=== PATIENT | male | born 2005 | race Caucasian/White ===

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

== ENCOUNTER 2025-02-18 22:21 | Emergency (ER) | payer MEDICAID, SELFPAY ==
--- NOTE | ~2025-02-18 | XR_ITS ---
CLINICAL HISTORY: pain cough wheeze 1 view chest x-ray Comparison: None provided Findings: No consolidation or effusion. Normal size heart. No acute fracture. IMPRESSION: 1. No acute findings. This document has been electronically signed by: Roger Montenegro MD on 02/18/2025 23:54:02
--- NOTE | ~2025-02-18 | XR_ITS ---
CLINICAL HISTORY: pain 3 views lumbar spine Comparison: None provided Findings: Normal vertebral body alignment. No acute fractures or dislocation. No significant degenerative change. IMPRESSION: No acute findings. This document has been electronically signed by: Roger Montenegro MD on 02/18/2025 23:53:39
[2025-02-18 22:34] VITALS: BP 113/61; PULSE 90; RESP 22; TEMP 36.8; O2SAT 98; BMI 22.5
[2025-02-18 22:56] LABS: Hematocrit 43.3 % (42.0-52.0); Hemoglobin 14.2 g/dl (14.0-18.0); Imm Gran Abs Auto 0.23 X10*3/uL (0.00-0.03); Imm Gran Pct Auto 1.5 % (0.0-0.4); Lymphocytes Absolute Auto 3.3 X10*3/uL (1.2-4.9); Mean Corpuscular HGB Conc 32.8 g/dl (31.0-36.0); Mean Corpuscular Hemoglobin 29.6 pg (27.0-33.0); Mean Corpuscular Volume 90.2 fL (80.0-98.0); NRBC Abs Auto 0.000 X10*3/uL (0.0-0.012); NRBC Pct Auto 0.0 /100WBC (0.0-0.2); Platelet Count 390 X10*3/uL (160-400); Red Blood Count 4.80 X10*6/uL (4.60-5.80); SCAN SMEAR FLAG 1; White Blood Count 15.4 X10*3/uL (4.8-10.8)
[2025-02-18 23:09] LABS: Alanine Aminotransferase 17 U/L (0-40); Albumin Level 4.5 g/dL (3.5-5.0); Alkaline Phosphatase 67 U/L (39-117); Anion Gap 16 (12-20); Aspartate Amino Transferase 22 U/L (5-37); Blood Urea Nitrogen 18 mg/dL (9-16); Calcium 9.0 mg/dL (8.4-10.2); Carbon Dioxide 25 mmol/L (22-29); Chloride 105 mmol/L (96-108); Creatinine Clr Calc Pharmacy 161.1; Estimated Glomerular Filt Rate > 60; Magnesium 2.3 mg/dL (1.6-2.6); Potassium 4.5 mmol/L (3.3-5.1); Sodium 141 mmol/L (135-145); Total Protein 7.5 g/dL (6.5-8.0)
[2025-02-18 23:13] LABS: COVID-19 Test Negative (Negative); IDNOW Serial# 55D5AD1C; IDNOW Serial# 58CA691E; Influenza B2 Negative (Negative)
--- OUTSIDE RECORDS SUMMARY | 2025-02-18 23:34 | XMS_ITS | Clinical Summary ---
Author Organization [facility] Address [address] [address] Phone Care Team Providers Care Coppersmith Apprentice Name Role Phone Margie Painting MD Primary Care Provider [phone] Allergies Active Allergy Reactions Criticality Noted Date Comments Penicillins Rash Low 08/12/2020 Social History Tobacco Use Types Packs/Day Years Used Date Smoking Tobacco: Never Assessed Education Answer Date Recorded Are you interested in more education? Not on demi e 08/08/2022 Are you concerned about learning? Not on file 08/08/2022 No 08/08/2022 No 08/08/2022 Digital Access Answer Date Recorded No 09/05/2022 No 09/05/2022 No 09/05/2022 Reliable internet access at home? Not on file 09/05/2022 Device with a working camera? Not on file Sex and Gender Information Value Date Recorded Sex Assigned at Not on file Legal Sex Male 8:48 AM EDT Gender Identity Not on file Sexual Orientation Not on file Plan of Treatment Health Maintenance Due Date Last Done Comments BMI ASSESSMENT 2008 DEVELOPMENTAL/BEHAVIORAL SCREENING (PHQ, PSC, or SWYC) 2008 COMBINED DTaP,Tdap,Td (2 - T d or Tdap) 10/22/2017 09/24/2017 DEPRESSION SCREENING 2017 SMOKING Hx and SMOKELESS TOBACCO SCREENING 2018 VARICELLA VACCINES (1 of 2 - 13+ 2-dose series) 2018 MENINGOCOCCAL VACCINES (B) ( 1 of 2 - Standard) 2021 ADOLESCENT UNIVERSAL LIPID SCREENING 2022 HEPATITIS C SCREENING 11/20/2023 HIV ONE-TIME SCREENING (18-6 5 YEARS) 11/20/2023 INFLUENZA VACCINE (#1) 2024 HEPATITIS B VACCINES (1 of 3 - 19+ 3-dose series) 2024 COVID-19 VACCINE (1 - 2024-2 6 season) 2024 MMR VACCINES Completed 05/16/2015, 09/19/2010 MENINGOCOCCAL VACCINES (ACWY) Aged Out 09/24/2017 No longer eligible based on patient's age to complete this topic HPV VACCINES Completed 03/28/2018, 09/24/2017 HEPATITIS A VACCINES Aged Out No long er eligible based on patient's age to complete this topic HIB VACCINES Aged Out No longer eligi ble based on patient's age to complete this topic PNEUMOCOCCAL VACCINES (0-49 years) Aged Out No longer eligible b ased on patient's age to complete this topic Medical Devices Not on file Insurance [facility] [place] [address] [place] [address] [place] [address] [facility] Care Teams Coppersmith Apprentice Relationship Specialty Start Date End Date Margie Painting MD [address] [place] [id number] PCP - General Adolescent Medicine 08/05/20 Additional Source Comments The information contained in this document represents components of the legal health record. It is not the complete legal health record.[facility]
[2025-02-19 01:48] VITALS: BP 127/67; PULSE 79; RESP 16; TEMP 36.9; O2SAT 98
--- NOTE | 2025-02-19 03:39 | ED_ITS ---
HPI - General Adult General Chief complaint: General Medical Stated complaint: back pain, headache, coughing Time Seen by Provider: 02/19/25 03:31 Source: patient Mode of arrival: ambulatory Limitations: no limitations History of Present Illness ED Provider: Devan VEGA HPI narrative: The patient is a 19 year old male presenting to the emergency department for evaluation of multiple complaints. The patient reports for the past week he has been experiencing headaches with sinus congestion/pressure, as well as wheezing, and a cough which sounds congested but does not produce any phlegm, as well as atraumatic intermittent low back pain. The patient denies any associated fever/chills, nausea, vomiting, diarrhea, chest pain, shortness of breath, pleurisy, hemoptysis, recent change in activity, recent heavy lifting, recent falls, or other trauma. The patient reports he has recently been around his sisters who have both been feeling ill, denies other sick contacts. Related Data Previous Rx's ?Medication ?Instructions ?Recorded acetaminophen 500 mg capsule 1,000 mg (2 x 500 mg) PO .q8 PRN 02/19/25 fever or pain #30 caps ibuprofen 600 mg tablet 600 mg PO Q8H PRN fever or p ain 02/19/25 #30 tabs Allergies Allergy/AdvReac Type Severity Reaction Status Date / Time amoxicillin Allergy Hives Verified 02/18/25 22:39 Penicillins Allergy Hives Verified 02/18/25 22:39 Review of Systems 2 Review of Systems: Yes all other systems are reviewed and are negative PMFSH Social History Social History Smoked in Last 30 Days: No Use of substances other than those prescribed or required for medical reasons: No Advance Directives: No Advance Directives Information Provided: No Physical Exam ED Vital Signs: Vital Signs - 24 hr 02/18/25 22:34 02/19/25 01:48 Temperature 98.2 F 98.5 F Pulse Rate 90 79 Respiratory Rate 22 H 16 Blood Pressure 113/61 127/67 Pulse Oximetry 98 98 Oxygen Delivery Method Room Air Room Air BMI result Body Mass Index 22.5 CONSTITUTIONAL: The patient appears non-toxic, well nourished and in no acute distress. Vital signs as documented. HEAD: Atraumatic, normocephalic. EYES: EOMs grossly intact, pupils equal, conjunctiva clear, no exudate. ENT: Nares patent, no discharge. Airway patent, no audible stridor, visible mucosa is pink and moist without noted lesions. NECK: Trachea is midline, no obvious masses or gross abnormalities. CHEST: Symmetric movement, normal appearance. LUNGS: LS present and CTAB, no w/r/r. Non-labored work of breathing. CARDIAC: Regular Rhythm, S1/S2 appreciated, no murmurs, rubs or gallops. ABDOMEN: Abdomen soft and non-tender x4 quadrants, no palpable masses or organomegaly. : Deferred. EXTREMITIES: Normal tone, moves all extremities spontaneously without reported pain. No obvious acute injury or deformity noted. NEURO: Alert and oriented x3, CN II-XII appear grossly intact. Cerebellar Functioning grossly intact. No obvious sensory or motor deficits. Speech clear and appropriate. PSYCH: normal affect, appropriate eye contact, fluid speech, with appropriate response to questioning. No reported suicidality or homicidality. SKIN: Warm, dry, color appropriate, normal turgor. No rashes noted. Medical Decision Making Medical Decision Making MDM Narrative: 4:25 AM 02/19/2025 (Clyde VEGA): The patient is a 19 year old male presenting to the emergency department for evaluation of multiple complaints. The patient reports for the past week he has been experiencing headaches with sinus congestion/pressure, as well as wheezing, and a cough which sounds congested but does not produce any phlegm, as well as atraumatic intermittent low back pain. The patient denies any associated fever/chills, nausea, vomiting, diarrhea, chest pain, shortness of breath, pleurisy, hemoptysis, recent change in activity, recent heavy lifting, recent falls, or other trauma. The patient reports he has recently been around his sisters who have both been feeling ill, denies other sick contacts. On exam the patient was woken from sleep, appeared to be very comfortable, in no acute distress, woke readily. The patient's exam is benign, lung sounds clear, abdomen nontender, low back demonstrates no erythema, crepitus, or bony tenderness, full nonpainful range of motion of the neck, no meningismus. Patient's laboratory moderate leukocytosis evaluation does show moderate leukocytosis of 15.4, however patient is afebrile, non tachycardic, and normotensive. Remainder of laboratory workup is reassuring, no anemia, electrolyte abnormality, or FABI. LFTs are unremarkable. Patient's viral swabs are negative for influenza and COVID. The patient's chest x-ray shows no focal consolidation, lumbar spine x-ray shows no acute findings. The patient is likely suffering from a viral syndrome. In the middle of educating the patient on likely source and proposed management of his symptoms, the patient suddenly became very oppositional, began refusing any offered interventions or prescriptions, stating he was tired and just wanted to leave. Patient refused to participate in any additional health education. Patient then demanded to be discharged and shut down the conversation. Patient will be discharged with supportive care. Admission/Observation Consideration of admission/observation: Escalation of care including admission/observation considered Lab Data MDM Lab Attestation statement: I reviewed the patient's lab results. 02/18/25 22:44 02/18/25 22:44 Labs: Lab Results 02/18/25 Range/Units 22:44 WBC 15.4 H (4.8-10.8) X10*3/uL RBC 4.80 (4.60-5.80) X10*6/uL Hgb 14.2 (14.0-18.0) g/dl Hct 43.3 (42.0-52.0) % MCV 90.2 (80.0-98.0) fL MCH 29.6 (27.0-33.0) pg MCHC 32.8 (31.0-36.0) g/dl RDW 13.5 (11.0-16.0) % Plt Count 390 (160-400) X10*3/uL MPV 8.9 L (9.4-12.4) fL Immature Gran % (Auto) 1.5 H (0.0-0.4) % Neut % (Auto) 64.8 (45-73) % Lymph % (Auto) 21.2 (20-40) % [place] % (Auto) 9.9 (2-11) % Eos % (Auto) 1.8 (0-4) % Baso % (Auto) 0.8 (0-2) % Lymph # (Auto) 3.3 (1.2-4.9) X10*3/uL [place] # (Auto) 1.5 H (0.1-1.2) X10*3/uL Eos # (Auto) 0.3 (0.0-0.4) X10*3/uL Baso # (Auto) 0.1 (0.0-0.2) X10*3/uL Abs Immat Gran (auto) 0.23 H (0.00-0.03) X10*3/uL Absolute Neuts (auto) 10.0 H (2.0-8.3) x10*3/uL Absolute Nucleated RBC 0.000 (0.0-0.012) X10*3/uL Nucleated RBC % (auto) 0.0 (0.0-0.2) /100WBC Smear Tech's Comments VERIFIED Sodium 141 (135-145) mmol/L Potassium 4.5 (3.3-5.1) mmol/L Chloride 105 (96-108) mmol/L Carbon Dioxide 25 (22-29) mmol/L Anion Gap 16 (12-20) BUN 18 H (9-16) mg/dL Creatinine 0.83 (0.5-1.4) mg/dL Estim Creat Clear Calc 161.1 Estimated GFR > 60 Random Glucose 83 (60-115) mg/dL Calcium 9.0 (8.4-10.2) mg/dL Magnesium 2.3 (1.6-2.6) mg/dL Total Bilirubin 0.2 (0.0-1.0) mg/dL AST 22 (5-37) U/L ALT 17 (0-40) U/L Alkaline Phosphatase 67 (39-117) U/L Total Protein 7.5 (6.5-8.0) g/dL Albumin 4.5 (3.5-5.0) g/dL COVID-19 ([place]) Negative (Negative) COVID-19 Clin Com See Note Influenza Type A (TOD) Negative (Negative) Influenza Type B (TOD) Negative (Negative) Influenza A & B Note See Note Radiology Impression Discussion of test interpretation with radiology: I have reviewed the radiologist's reading. Radiologist Impression: 1 view chest x-ray Comparison: None provided Findings: No consolidation or effusion. Normal size heart. No acute fracture. IMPRESSION: 1. No acute findings. This document has been electronically signed by: Roger Montenegro MD on 02/18/2025 23:54:02 3 views lumbar spine Comparison: None provided Findings: Normal vertebral body alignment. No acute fractures or dislocation. No significant degenerative change. IMPRESSION: No acute findings. This document has been electronically signed by: Roger Montenegro MD on 02/18/2025 23:53:39 External Record Review External record reviewed: Outpatient record and Prior outpatient labs Prescription Management I considered prescription management with: Pain Medication Discharge Plan Discharge Clinical Impression: Acute viral syndrome Low back pain Qualifiers: Chronicity: acute Back pain laterality: midline Sciatica presence: without sciatica Qualified Code(s): M54.50 - Low back pain, unspecified Patient Disposition: Home, Self-Care Instructions: Acute Low Back Pain (ED), Viral Syndrome (ED) Additional Instructions: Thank you for choosing [facility]'s Emergency Department for your care today. Thankfully your laboratory evaluation, viral swabs, chest x-ray, back x-ray, vital signs, and exam today are all reassuring. There was no evidence of an dangerous emergent process causing your symptoms. At this time there is no indication for admission to the hospital or continued ED observation, and it is safe to discharge you home. Your symptoms may be related to a viral illness causing congestion of your chest and generalized body aches. You should take alternating (staggered) doses of ibuprofen 600mg and Tylenol 1000mg every 4 hours as needed for any additional pain. Please stay well hydrated and get plenty of rest. Please rest your back, and apply ice for 20 minutes every hour. Please follow up with your primary care physician for re-evaluation, additional management of your symptoms, and continued preventative care. If you do not have a primary care physician, please call the [facility] at [phone] to establish a new primary care physician. While waiting to establish your new primary care physician, you can call our [facility] at [phone] for non-emergency needs. Please return to the emergency department if you develop a severe or sudden change in your symptoms, a fever over 100.4 that does not improve with Tylenol or Ibuprofen, recurrent vomiting, or any other new or worsening symptoms or concerns. Prescriptions: New ibuprofen 600 mg tablet 600 mg PO Q8H PRN (Reason: fever or pain) Qty: 30 0RF acetaminophen 500 mg capsule 1,000 mg PO .q8 PRN (Reason: fever or pain) Qty: 30 0RF Referrals: Margie Painting MD [Primary Care Provider, Pediatrics] Clinical Impression: Low back pain; Acute viral syndrome Print Language: Malagasy
[2025-02-19 04:32] VITALS: BP 127/67; PULSE 79; RESP 16; TEMP 36.9; O2SAT 98
== END 2025-02-19 04:32 | disposition home or self-care (01) ==
PROVIDERS: Emergency Provider Emergency Medicine; PCP Pediatrics Adolescent Medicine
DX: B34.9 Viral infection, unspecified (principal); M54.50 Low back pain, unspecified; R51.9 Headache, unspecified; R05.9 Cough, unspecified; R09.81 Nasal congestion; R06.2 Wheezing; Z11.52 Encounter for screening for COVID-19
CPT/HCPCS: 71045; 72100; 80053; 83735; 85025; 87502; 87635; 99283; 99284

== ENCOUNTER → 2025-02-18 23:21 | Outpatient (BNV) | payer MEDICAID, SELFPAY | PROVIDERS: PCP Pediatrics Adolescent Medicine; Visit Provider Radiology Diagnostic Radiology | DX: M54.50 Low back pain, unspecified (principal); R07.9 Chest pain, unspecified; R05.9 Cough, unspecified; R06.2 Wheezing | CPT/HCPCS: 71045; 72100 ==